=== PATIENT | female | born 1950 | race Caucasian/White ===

== ENCOUNTER 2020-10-02 07:59 | Day surgery (SDC) | payer BC, OTHER ==
[2020-09-30 13:03] VITALS: BMI 31.1
[2020-10-02] MEDS ORDERED: PROPOFOL 20 ML ONE ×2 (09:06)
[2020-10-02 09:34] VITALS: TEMP 97.8
[2020-10-02 10:01] VITALS: BP 133/57; PULSE 78
== END 2020-10-02 09:55 | disposition home or self-care (01) ==
LOC: FASU-ENDO 07:59
PROVIDERS: ATTEND Internal Medicine Gastroenterology
PROC: 0DJD8ZZ Inspection of Lower Intestinal Tract, Via Natural or Artificial Opening Endoscopic (ICD-10-PCS; principal; 2020-10-02 09:07)
DX: Z12.11 Encounter for screening for malignant neoplasm of colon (principal); K57.30 Diverticulosis of large intestine without perforation or abscess without bleeding

== ENCOUNTER 2024-05-30 15:38 | Emergency (ER) | payer BC ==
[2024-05-30 16:17] VITALS: RESP 18; BMI 30.5
[2024-05-30] MEDS: ACETAMINOPHEN 1000 MG/100 ML BAG IVPB ONE (16:42)
[2024-05-30] MEDS ORDERED: ACETAMINOPHEN INJECTION 100 ML ONE (16:46)
[2024-05-30 17:53] LABS: HEMATOCRIT 35.5 % (32.4-45.2); HEMOGLOBIN 12.2 G/dL (10.7-15.3); MCH 30.8 pg (25.7-33.7); MCHC 34.4 g/dl (32.0-36.0); MEAN CELL VOLUME 89.7 fl (80-96); MEAN PLT VOLUME 9.9 fl (7.5-11.1); PLATELET COUNT 234.5 10^3/uL (134-434); RBC 3.96 10^6/uL (3.60-5.2); RDW 13.4 % (11.6-15.6); WHITE BLOOD COUNT 15.5 10^3/uL (4.0-10.8)
[2024-05-30 18:18] VITALS: BP 108/64; PULSE 92; TEMP 100.2
[2024-05-30 18:24] LABS: ALBUMIN 3.8 g/dl (3.4-5.0); BILIRUBIN,TOTAL 0.6 mg/dl (0.2-1); CALCIUM 8.6 mg/dl (8.5-10.1); CREATININE 0.6 mg/dl (0.6-1.3); POTASSIUM 3.5 mmol/L (3.5-5.1); TOT PROT 6.3 g/dl (6.4-8.2)
[2024-05-30] MEDS: CEPHALEXIN MONOHYDRATE 500 MG CAPSULE (UD) PO ONE (18:48)
[2024-05-30] MEDS ORDERED: CEPHALEXIN MONOHYDRATE 500 MG CAPSULE (UD) ONE (18:48)
[2024-05-30 21:09] LABS: HIV INTERPRETATION NEGATIVE (NEGATIVE)
== END 2024-05-30 19:02 | disposition home or self-care (01) ==
LOC: FER 15:38
PROC: 3E033NZ Introduction of Analgesics, Hypnotics, Sedatives into Peripheral Vein, Percutaneous Approach (ICD-10-PCS; principal; 2024-05-30)
DX: N39.0 Urinary tract infection, site not specified (principal); J06.9 Acute upper respiratory infection, unspecified; R53.1 Weakness; R35.0 Frequency of micturition; M79.10 Myalgia, unspecified site; Z20.822 Contact with and (suspected) exposure to COVID-19
CPT/HCPCS: 0241U-QW; 36415; 71046-TC-FY; 80053; 81003; 81015; 84484; 85027; 86803; 87077; 87086; 87186; 87389; 93005; 96374; 99285-25; J0131